=== PATIENT | female | born 1955 ===

== ENCOUNTER 2018-07-13 07:57 | Outpatient (CLI) | payer OTHER ==
[~2018-07-13] VITALS: Ht 165.1 cm; Wt 64.0 kg
[2018-07-13] MEDS ORDERED: LIPO-FLAVONOID1 EACH PO (09:56)
== END 2018-07-13 08:10 | disposition home or self-care (01) ==
LOC: OFIC 805 07:57
DX: R42 Dizziness and giddiness (principal); H81.13 Benign paroxysmal vertigo, bilateral

== ENCOUNTER 2019-04-05 10:08 | Outpatient (CLI) | payer OTHER ==
[~2019-04-05 10:08] MED LIST: LIPO-FLAVONOID1 EACH PO
== END 2019-04-05 10:14 | disposition home or self-care (01) ==
LOC: SONOGRAMA 10:08
DX: R10.84 Generalized abdominal pain (principal)